=== PATIENT | female | born 1965 | race African-American/Black ===

== ENCOUNTER 2020-08-23 18:00 | Emergency (ER) | payer MEDICARE ==
[~2020-08-23] VITALS: Ht 165.1 cm; Wt 63.5 kg
[2020-08-23] MEDS ORDERED: KETOROLAC TROMETHAMINE 60 MG/2 ML VIAL ONE (18:24)
[2020-08-23] MEDS ORDERED: ACETAMINOPHEN 325 MG TAB ONE (18:25)
[2020-08-23] MEDS ORDERED: PREDNISONE 20 MG TAB ONE (18:25)
[2020-08-23] MEDS ORDERED: KETOROLAC TROMETHAMINE 60 MG/2 ML VIAL IM ONE (18:30)
[2020-08-23] MEDS ORDERED: PREDNISONE 20 MG TAB PO SCH (18:30)
[2020-08-23] MEDS ORDERED: ACETAMINOPHEN 325 MG TAB PO PRN (18:30)
[2020-08-23] MEDS ORDERED: CYCLOBENZAPRINE10 MG PO (18:52)
[2020-08-23] MEDS ORDERED: IBUPROFEN600 MG PO (18:52)
[2020-08-23] MEDS ORDERED: PREDNISONE50 MG PO (18:52)
== END 2020-08-23 18:59 | disposition home or self-care (01) ==
LOC: FSED 18:27
DX: M54.42 Lumbago with sciatica, left side (principal); M54.41 Lumbago with sciatica, right side; J44.9 Chronic obstructive pulmonary disease, unspecified
CPT/HCPCS: 99283; J1885; J7512